=== PATIENT | male | born 1960 | race African-American/Black ===

== ENCOUNTER 2017-03-08 11:14 | Emergency (ER) | payer OTHER ==
[~2017-03-08] VITALS: Ht 175.3 cm; Wt 69.0 kg
[2017-03-08 11:24] VITALS: BP 165/89
[2017-03-08] MEDS ORDERED: KETOROLAC 60MG/2ML VIAL IM ONE (11:45)
== END 2017-03-08 12:18 | disposition home or self-care (01) ==
LOC: ER 12:17
DX: M25.512 Pain in left shoulder (principal)
CPT/HCPCS: 96372; 99283; J1885; A4565